=== PATIENT | male | born 1965 | race Two or more races ===

== ENCOUNTER 2025-07-07 20:06 | Emergency (ER) | payer OTHER, MEDICAID ==
[~2025-07-07] VITALS: Ht 177.8 cm; Wt 82.6 kg
[2025-07-07] MEDS: LACTATED RINGER'S 2,200 ML IV ONE (00:45)
--- NOTE | 2025-07-07 20:36 | ED.PDOC ---
GI ASSESSMENT HPI Comments HPI: 60-year-old male who came to ER for nausea and vomiting. Patient denies any medical problems. Denies any history of abdominal surgeries. About 12 noon today, he developed sudden onset dizziness, followed by bolus of nausea, vomiting 6 times, and loose nonbloody diarrhea 4 times. Patient felt generally weak. Denies any exposure to sick individuals Past Medical History: Denies Past Surgical History: Denies Social History: Denies HPI: Poor Historian. Weakness nausea vomiting diarrhea x1 day. Denies sick contacts. REVIEW OF SYSTEMS: CONSTITUTIONAL: Denies acute: fever, diaphoresis, chills, HEAD: Denies acute: headache, photophobia Eyes: Denies acute: Double vision, vision loss, eye pain, eye discharge. EARS: Denies acute: tinnitus, hearing loss, ear discharge, ear pain, THROAT: Denies acute: sore throat, swelling, difficulty swallowing , pain with swallowing, change in voice. NECK: Denies acute: neck pain, neck swelling, stiff neck. HEART: Denies acute : chest pain, palpitations, LUNGS: Denies acute: SOB, wheezing, cough, hemoptysis ABDOMEN: Denies acute: abdominal pain, , melena , hematemesis, hematochezia SKIN: Denies acute: rash, redness, lesions, itchiness. EXTREMITIES: Denies acute: calf pain, numbness, tingling, weakness, denies pain in extremity. Denies acute: Low back pain. Neuro: Denies acute: focal neurological deficit, motor or sensory focal neurological deficit, tremors, seizure like activity, confusion, dizziness, change in mental status, loss of bowel or bladder function, cauda equina like symptoms. : Denies acute: dysuria, hematuria, flank pain, increase in urinary frequency. PSYCH: Denies acute: hallucination, suicidal ideation, homicidal ideation. PHYSICAL EXAM: General: ----mild----acute distress, awake and alert. Head: normocephalic, atraumatic. No raccoon's eyes, no longoria sign. Neck: supple, trachea is midline, no swelling. Throat: Normal phonation. Eyes:, no erythema, no purulent discharge, no proptosis, no icterus. Heart: regular tachycardic, no significant murmur appreciated. Lungs: no apparent respiratory distress, Able to speak in full sentences. No wheezing, no rhonchi, no crackles. No stridors Clear to auscultation bilaterally. Abdomen: non tender to palpation, non distended, soft, no guarding, no rebound, + bowel sounds. Neuro: Awake, Alert, oriented to name, self, situation, follows commands GCS=15. Speech is normal. Skin: no petechia, no purpura, no cyanosis, non-pale, not jaundice. Lower extremities: --no - Pitting edema no deformity, no focal swelling, no calf TTP. Makes eye contact. moves all four extremities. Face: no apparent facial droop. Ambulating in the ED independently. ED COURSE: DISCLAIMER: This medical document was created using an electronic medical record system with voice recognition software and computerized dictation system. Although this document has been carefully reviewed, there might still be some phonetic and typographical errors. Occasional wrong-word or "sound-alike" substitutions may have occurred due to the inherent limitations of voice recognition software. These areas are purely typographical due to imperfections of the software programs and do not reflect any compromise in the patient's medical care. Please read the chart carefully and recognize, using context, where these substitutions have occurred. Chief Complaint: Nausea/Vomiting Time Seen by MD: 20:36 Reviewed Notes: Nurses Notes Allergies: Coded Allergies: No Known Drug Allergy (Verified Allergy, Unknown, 07/07/25) Information Source: Patient Mode of Arrival: Ambulatory Past Medical History PAST MEDICAL HISTORY: Denies Surgical History: Denies all surgeries Family History Family History: Reviewed,noncontributory to illness Social History Smoker: Non-Smoker Alcohol: Denies ETOH Use Drugs: Denies Drug Use Lives In: Home EKG EKG : Pulse Rate (adult): 123 Cardiac Rhythm: ST Was a procedure done? Was a procedure done?: No X-Ray, Labs, Meds, VS Vital Signs Date Time Temp Pulse Resp B/P (MAP) Pulse Ox O2 Delivery O2 Flow Rate FiO2 07/07/25 23:17 99.3 101 16 121/72 (88) 96 99.3 07/07/25 20:36 123 07/07/25 20:18 122 07/07/25 20:08 99.1 129 16 128/88 95 99.1 Lab Test 07/07/25 21:44 07/07/25 20:46 Range/Units Lactic Acid Level 1.7 2.2 *H 0.4-2.0 mmol/L White Blood Count 17.9 H 4.4-10.8 10^3/uL Red Blood Count 5.05 4.5-5.90 10^6/uL Hemoglobin 15.5 13.5-17.5 g/dL Hematocrit 46.2 41.0-53.0 % Mean Corpuscular Volume 91.4 80.0-100.0 fL Mean Corpuscular Hemoglobin 30.7 28.0-32.0 pg Mean Corpuscular Hemoglobin Concent 33.6 32.0-36.0 g/dL Red Cell Distribution Width 12.1 11.8-14.3 % Platelet Count 242 140-450 10^3/uL Mean Platelet Volume 8.7 6.9-10.8 fL Neutrophils (%) (Auto) 93.1 H 37.0-80.0 % Lymphocytes (%) (Auto) 4.2 L 10.0-50.0 % Monocytes (%) (Auto) 2.3 0.0-12.0 % Eosinophils (%) (Auto) 0.2 0.0-7.0 % Basophils (%) (Auto) 0.2 0.0-2.0 % Neutrophils # (Auto) 16.7 H 1.6-8.6 10 ^3/uL Lymphocytes # (Auto) 0.7 0.4-5.4 10 ^3/uL Monocytes # (Auto) 0.4 0-1.3 10 ^3/uL Eosinophils # (Auto) 0 0-0.8 10 ^3/uL Basophils # (Auto) 0 0-0.2 10 ^3/uL Nucleated Red Blood Cells 0.0 % Prothrombin Time 10.9 9.3-11.8 sec Prothrombin Time INR 1.03 0.9-1.15 Activated Partial Thromboplast Time 29.4 24.5-34.5 SEC Sodium Level 142 136-145 mmol/L Potassium Level 4.2 3.5-5.1 mmol/L Chloride Level 102 98-107 mmol/L Carbon Dioxide Level 29 20-31 mmol/L Anion Gap 11 5-15 Blood Urea Nitrogen 16 9-23 mg/dL Creatinine 1.22 0.700-1.30 mg/dL Glomerular Filtration Rate Calc 68 >90 mL/min BUN/Creatinine Ratio 13.1 10.0-20.0 Serum Glucose 131 H 74-106 mg/dL Calcium Level 9.3 8.7-10.4 mg/dL Total Bilirubin 1.2 H 0.2-1.0 mg/dL Aspartate Amino Transferase (AST) 17 13-40 U/L Alanine Aminotransferase (ALT) 19 7-40 U/L Alkaline Phosphatase 101 46-116 U/L Total Protein 7.7 5.7-8.2 g/dL Albumin 4.8 3.2-4.8 g/dL Lipase 32 12-53 U/L Current Medications Medications (Trade) Dose Ordered Sig/George Route Start Time Stop Time Status Last Admin Sodium Chloride 1,000 ml @ 1,000 mls/hr Q1H ONCE IV 07/07/25 20:45 07/07/25 21:44 DC 07/07/25 20:45 Ciprofloxacin 200 ml @ 200 mls/hr ONCE ONCE IV 07/07/25 21:45 07/07/25 22:44 DC 07/07/25 22:51 [place] [address] Ph: [phone] DIAGNOSTIC IMAGING Diagnostic Imaging Report : [id number] Signed PATIENT: DEEJAY WILLINGHAM ACCT: [id number] UNIT: [id number] : 1965 LOC: ER ROOM / BED: / AGE / SEX: 60 / M ADM STATUS: REG ER SERVICE 38 ORDERING PHYSICIAN: VIJAY NATHAN DO PROCEDURE(s): ABPL - CT AB PEL WO CON-NO ORAL OR IV REASON: n/v/d abd pain ORDER NUMBER(s): [id number], ACCESSION NUMBER(s): [id number] COMPUTERIZED TOMOGRAPHY ABDOMEN AND PELVIS WITHOUT CONTRAST REASON FOR EXAM: n/v/d abd pain COMPARISON: None TECHNIQUE: Spiral scans were acquired from the diaphragm to the symphysis pubis without intravenous contrast administration. 2-D coronal and sagittal reformatted images were provided. Radiation optimization: All CT scans at this facility use at least one of these dose optimization techniques: Automated exposure control mA and/or kV adjustment per patient size (includes targeted exams where dose is matched to clinical indication) or iterative reconstruction. RADIATION DOSE: CTDI: 16 mGy DLP: 999 mGy-cm FINDINGS: There is a 4 mm pleural-based nodule in the right lower lobe abutting the major fissure (series 3, image 19) that likely represents an intrapulmonary lymph node and requires no dedicated follow-up according to the Fleischner society guidelines for low risk patient. There is platelike atelectasis in bilateral lower lobes of the lungs. There is no pleural effusion. There is no pericardial effusion. The spleen is not enlarged. The liver is normal in size and contour. Evaluation of the abdominal organs is suboptimal in the absence of intravenous contrast.The gallbladder is collapsed. No calcified gallstone is identified. Unenhanced appearance of the pancreas is unremarkable. The adrenal glands appear normal. The kidneys are similar in size. There is no hydronephrosis of either kidney. No renal, ureteral, or bladder calculus is identified. The urinary bladder is unremarkable. There is no abdominal aortic aneurysm. No pathologic lymphadenopathy is identified by size criteria. The prostate and seminal vesicles are within normal limits. The colonic stool burden is small. The appendix is normal. There is no pathologic distention of the small bowel to suggest obstruction. There is chronic appearing mild deformity of the coccyx. No acute osseous abnormality is identified. IMPRESSION: No abnormality identified in the abdomen or pelvis to explain the patient's abdominal pain. ATED BY: EDUAR PITT MD DICTATED DATE/TIME: 07/07/252114 SIGNED BY: EDUAR PITT MD SIGNED DATE/TIME: 07/07/252114 CC: Time of 1ST Reevaluation: 20:33 Reevaluation 1ST: Unchanged Time of 2ND Reevaluation: 00:01 (The case was discussed with the Home admitting team (HPI, physical exam, labs and diagnostic tests that were available at the time of disposition, ED course, treatment plan) on the phone. They agreed to transfer the patient to their service by ALS for further evaluation and treatment. Dr. HUNTER. Authorization number is--[id number]) Patient Education/Counseling: Diagnosis, Treatment Family Education/Counseling: No Family Present SEPSIS Sepsis Screen Date sepsis recognized/suspect: Jul 07, 2025 Time Sepsis recognized/suspect: 2009 Recent Procedure: No Respiratory Rate >20: No Heart Rate >90: Yes Temp<36 C (96.8 F) or >38.3 C: No SBP <90 or MAP <65 mmHG: No New Acute Mental Status Change: No Is the patient on CPAP, BIPAP,: No Physician Orders Electrocardigram (07/07/25 20:12) Electrocardigram (07/07/25 21:12) Electrocardigram (07/07/25 23:12) Urinalysis (07/07/25 20:39) Stool Wbc (07/07/25 20:39) Ova & Parasite Exam (07/07/25 20:39) Stool Bacterial Culture (07/07/25 20:39) Clostridium Difficile Toxin (07/07/25 20:39) Ct Ab Pel Wo Con-No Oral Or Iv (07/07/25 20:39) Blood Culture (07/07/25 21:12) Urinalysis (07/07/25 21:41) Chest Portable (07/07/25 21:41) Lactic Acid W/ Reflex Order (07/08/25 00:00) Notify Md If Map <65 Or Bp<90 (07/07/25 21:41) If Map<65 Start Vasopressor (07/07/25 21:41) Sepsis Reassesment After Fluid (07/07/25 22:41) Vital Signs Date Time Temp Pulse Resp B/P (MAP) Pulse Ox O2 Delivery O2 Flow Rate FiO2 07/07/25 23:17 99.3 101 16 121/72 (88) 96 99.3 07/07/25 20:36 123 07/07/25 20:18 122 07/07/25 20:08 99.1 129 16 128/88 95 99.1 Laboratory Tests Test 07/07/25 20:46 07/07/25 21:44 Lactic Acid Level 2.2 mmol/L (0.4-2.0) *H 1.7 mmol/L (0.4-2.0) White Blood Count 17.9 10^3/uL (4.4-10.8) H Medications Medications Dose Ordered Sig/George Route Start Time Stop Time Status Last Admin Dose Admin Ciprofloxacin 200 ml @ 200 mls/hr ONCE ONCE IV 07/07/25 21:45 07/07/25 22:44 DC 07/07/25 22:51 Sodium Chloride 1,000 ml @ 1,000 mls/hr Q1H ONCE IV 07/07/25 20:45 07/07/25 21:44 DC 07/07/25 20:45 Departure 1 Departure Time of Disposition: 21:41 Impression: Primary Impression: Nausea vomiting and diarrhea Additional Impressions: Leukocytosis Tachycardia Sepsis Disposition: 02 SHORT TERM HOSPITAL Admit to: Tele Condition: Guarded Discharged With: Self Critical Care Note Critical Care Time?: No I personally scribed for VIJAY NATHAN DO ([email or web address]) on 07/07/25 at 20:36. Elect ronically submitted by Héctor Spencer ([email or web address]). I personally scribed for VIJAY NATHAN DO ([email or web address]) on 07/07/25 at 21:20. E lectronically submitted by Winston Dunlap ([email or web address]). I personally scribed for VIJAY NATHAN DO ([email or web address]) on 07/07/25 at 21:38. Electronically submitted by Héctor Spencer ([email or web address]). VIJAY NATHAN DO Jul 07, 2025 20:36
[2025-07-07] MEDS: SODIUM CHLORIDE 0.9% 1,000 ML IV ONE (20:45)
[2025-07-07] MEDS: ONDANSETRON HCL 4 MG/2 ML VIAL IV ONE (20:45)
[2025-07-07 21:09] LABS: Hematocrit 46.2 % (41.0-53.0); Hemoglobin 15.5 g/dL (13.5-17.5); Mean Corpuscular Hemoglobin 30.7 pg (28.0-32.0); Mean Corpuscular Volume 91.4 fL (80.0-100.0); Nucleated Red Blood Cells % 0.0 %
--- NOTE | 2025-07-07 21:18 | DVH ---
COMPUTERIZED TOMOGRAPHY ABDOMEN AND PELVIS WITHOUT CONTRAST REASON FOR EXAM: n/v/d abd pain COMPARISON: None TECHNIQUE: Spiral scans were acquired from the diaphragm to the symphysis pubis without intravenous contrast administration. 2-D coronal and sagittal reformatted images were provided. Radiation optimization: All CT scans at this facility use at least one of these dose optimization techniques: Automated exposure control mA and/or kV adjustment per patient size (includes targeted exams where dose is matched to clinical indication) or iterative reconstruction. RADIATION DOSE: CTDI: 16 mGy DLP: 999 mGy-cm FINDINGS: There is a 4 mm pleural-based nodule in the right lower lobe abutting the major fissure (series 3, image 19) that likely represents an intrapulmonary lymph node and requires no dedicated follow-up according to the Fleischner society guidelines for low risk patient. There is platelike atelectasis in bilateral lower lobes of the lungs. There is no pleural effusion. There is no pericardial effusion. The spleen is not enlarged. The liver is normal in size and contour. Evaluation of the abdominal organs is suboptimal in the absence of intravenous contrast.The gallbladder is collapsed. No calcified gallstone is identified. Unenhanced appearance of the pancreas is unremarkable. The adrenal glands appear normal. The kidneys are similar in size. There is no hydronephrosis of either kidney. No renal, ureteral, or bladder calculus is identified. The urinary bladder is unremarkable. There is no abdominal aortic aneurysm. No pathologic lymphadenopathy is identified by size criteria. The prostate and seminal vesicles are within normal limits. The colonic stool burden is small. The appendix is normal. There is no pathologic distention of the small bowel to suggest obstruction. There is chronic appearing mild deformity of the coccyx. No acute osseous abnormality is identified. IMPRESSION: No abnormality identified in the abdomen or pelvis to explain the patient's abdominal pain.
[2025-07-07 21:27] LABS: Alanine Aminotransferase 19 U/L (7-40); Albumin 4.8 g/dL (3.2-4.8); Alkaline Phosphatase 101 U/L (46-116); Anion Gap 11 (5-15); BUN/Creatinine Ratio 13.1 (10.0-20.0); Blood Urea Nitrogen 16 mg/dL (9-23); Calcium 9.3 mg/dL (8.7-10.4); Carbon Dioxide 29 mmol/L (20-31); Chloride 102 mmol/L (98-107); Lipase 32 U/L (12-53); Potassium 4.2 mmol/L (3.5-5.1); Sodium 142 mmol/L (136-145); Total Protein 7.7 g/dL (5.7-8.2)
[2025-07-07 21:30] LABS: Bilirubin, Total 1.2 mg/dL (0.2-1.0); Glucose 131 mg/dL (74-106)
[2025-07-07 22:08] LABS: Lactic Acid w/Reflex 2.2 mmol/L (0.4-2.0)
[2025-07-07 22:15] LABS: INR 1.03 (0.9-1.15); Partial Thromboplastin Time 29.4 SEC (24.5-34.5); Prothrombin Time 10.9 sec (9.3-11.8)
--- NOTE | 2025-07-07 22:47 | DVH ---
CHEST RADIOGRAPH Indication: Sepsis Technique: Single frontal view of the chest was obtained COMPARISON: None FINDINGS: Lines and Tubes: None Lungs: Clear Pleura: No effusion. No pneumothorax. Cardiomediastinal contours: Unremarkable Bones: Unremarkable IMPRESSION: 1. No acute disease.
[2025-07-07] MEDS: CIPROFLOXACIN 400MG/200ML 200 ML IV ONE (22:51)
[2025-07-07 23:17] VITALS: BP 121/72; PULSE 101; RESP 16; TEMP 99.3; O2SAT 96
--- NOTE | 2025-07-08 19:39 | ECG ---
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
== END 2025-07-08 02:02 | disposition left against medical advice (07) ==
LOC: ER 20:06
DX: A41.9 Sepsis, unspecified organism (principal); D72.829 Elevated white blood cell count, unspecified; R11.2 Nausea with vomiting, unspecified; R19.7 Diarrhea, unspecified; R00.0 Tachycardia, unspecified
CPT/HCPCS: 36415; 71045; 74176; 80053; 83605; 83690; 85025; 85610; 85730; 87040; 93005; 96361; 96365; 99285; J0744; J7030; J7120